=== PATIENT | female | born 1985 | race Asian ===

== ENCOUNTER 2018-02-26 17:22 | Emergency (ER) | payer OTHER ==
--- OUTSIDE RECORDS SUMMARY | 2018-02-26 17:31 | XMS REPORT | Continuity of Care Document ---
:1985 External Reference #:[id number] Author Name Katya Shaffer O.D. Address [address] [place] [address] Care Team Providers Name Role Phone Katya Shaffer O.D. Care Team Information Tank Processor Unavailable Payers Type Date Identification Numbers Payment Provider Subscriber Policy Number: [id number] [employer] Janie FELIX PayID: [id number] [address] [place] [address] Policy Number: [id number] [employer] Ppo/Pos/Epo/Nap Janie FELIX PayID: [id number] [address] [place] [address] Advance Directives Description No Information Available Problems Date Description Provider Status Onset: 01/26/2018 Chronic allergic conjunctivitis Raad Pressley M.D. Active Onset: 01/26/2018 Myopia Raad Pressley M.D. Active Onset: 01/26/2018 Vitreous degeneration Raad Pressley M.D. Active Family History Date Family Member(s) Problem(s) Comments Father Diabetes Father Heart Disease Mother No Current Problems Social History Type Date Description Comments Sex Unknown Marital Status Single Occupation Dietary Director Work Status Full-Time Employment ETOH Use Consumes 1 beer per week Tobacco Use Start: Unknown End: Unknown Patient is a former smoker Recreational Drug Use Denies Drug Use Smoking Status Reviewed: 02/18/18 Patient is a former smoker Allergies, Adverse Reactions, Alerts Description No Known Drug Allergies Medications Description No Active Medications Immunizations Description No Information Available Vital Signs Description No Information Available Results Description No Information Available Procedures Date Code Description Status 01/26/2018 07685 Determination Of Refractive State Completed 01/26/2018 14944 New Patient Comprehensive Exam Completed Encounters Description No Information Available Plan of Treatment 02/18/2018 - Katya Shaffer O.D.H52.13 Myopia, bilateralComments:Smoking can increase the risk of developing or worsening any eye related disease, as well as affect your overall health. If you are a smoker, we strongly recommend that you quit.If you are not a smoker, we strongly recommend that you do not start. You have Myopia, or near sightedness. I have given you a prescription for glasses and contactsFollow up:1 year
[2018-02-26 17:35] VITALS: BP 132/86
--- NOTE | 2018-02-26 17:47 | UC ---
Knee Pain HPI - HPI Summary HPI Summary: Fell on her knees yesterday from a segway scooter. both knees were scraped, L worse than R. used neosporin. able to walk/bare weight. - History of Current Complaint Chief Complaint: UCLowerExtremity Stated Complaint: KNEE INJURY Time Seen by Provider: 02/26/18 17:28 Hx Obtained From: Patient Hx Last Menstrual Period: one month ago Onset/Duration: Sudden Onset Severity Initially: Mild Severity Currently: Mild Location Of Injury: L KNEE Pain Intensity: 3 Character: Sharp Aggravating Factor(s): Movement Alleviating Factor(s): Rest Associated Signs And Symptoms: Positive: Negative Able to Bear Weight: Yes - Risk Factors Septic Arthritis Risk Factor: Negative Gout Risk Factor: Negative - Allergies/Home Medications Allergies/Adverse Reactions: Allergies Allergy/AdvReac Type Severity Reaction Status Date / Time No Known Allergies Allergy Verified 02/26/18 17:35 Home Medications: Home Medications NK [No Home Medications Reported] 02/26/18 [History Confirmed 02/26/18] PMH/Surg Hx/FS Hx/Imm Hx - Additional Past Medical History Additional PMH: HEALTHY - Surgical History Surgical History: None - Family History Known Family History: Positive: Other Family History: NON CONTRIBUTORY - Social History Alcohol Use: Occasionally Substance Use Type: None Smoking Status (MU): Never Smoked Tobacco Review of Systems Constitutional: Negative Skin: Bruising - L knee Respiratory: Negative Cardiovascular: Negative Musculoskeletal: Arthralgia, Other: - denies L knee swelling, limping, discharge from abrasion. Is Patient Immunocompromised?: No All Other Systems Reviewed And Are Negative: Yes Physical Exam Triage Information Reviewed: Yes Appearance: Well-Appearing Vital Signs: Initial Vital Signs Temp 99.3 F 02/26/18 17:32 Pulse 99 02/26/18 17:32 Resp 18 02/26/18 17:32 BP 132/86 02/26/18 17:32 Pulse Ox 98 02/26/18 17:32 Vital Signs Reviewed: Yes Musculoskeletal: Positive: Strength Intact, ROM Intact, Other: - +bruising at L knee, FROM L knee, no swelling noted at knee. Neurological: Positive: Other: - walking normally Skin: Positive: Other - approx 3 in. patch of abrasion. superificial Knee Pain Course/Dx - Course Course Of Treatment: superficial abrasion; L knee - Differential Dx/Diagnosis Differential Diagnosis/HQI/PQRI: Abrasion, Bursitis, Sprain, Strain Provider Diagnoses: abrasion, L knee Discharge - Sign-Out/Discharge Documenting (check all that apply): Patient Departure All imaging exams completed and their final reports reviewed: No Studies - Discharge Plan Condition: Good Disposition: HOME Patient Education Materials: Abrasion (ED) Referrals: Edin Salinas MD [Primary Care Provider] - Additional Instructions: keep area dry , clean. ok to use neosporin. may scar - Billing Disposition and Condition Condition: GOOD Disposition: Home
== END 2018-02-26 18:01 | disposition home or self-care (01) ==
LOC: UCEAST 17:22
DX: S80.212A Abrasion, left knee, initial encounter (principal); V87.8XXA Person injured in other specified noncollision transport accidents involving motor vehicle (traffic), initial encounter; Y92.9 Unspecified place or not applicable
CPT/HCPCS: 99201; G0463

== ENCOUNTER 2023-06-26 18:10 | Inpatient (IN) ==
[2023-06-26] MEDS ORDERED: Lidocaine 1% VIAL 10 MG/ML 30 ML VIAL INJ PRN (19:36)
[2023-06-26] MEDS: Dinoprostone 10 MG VAG.SUPP VAGINAL ONE (20:10)
[2023-06-26] MEDS: Promethazine INJ(RESTRICTED) 25 MG/ML 1 ml VIAL IV PRN (22:47)
[2023-06-26] MEDS: Morphine 10 MG/ML VIAL (1 ml) IV ONE (22:48)
[2023-06-26 23:01] LABS: ABS Basophils 0.1 10^3/uL (0.0-0.1); ABS Eosinophils 0.2 10^3/uL (0.0-0.5); ABS Lymphocytes 2.2 10^3/uL (1.0-4.8); ABS Neutrophils 6.4 10^3/uL (1.5-7.6); ABS Nucleated RBC 0.01 10^3/ul; Eosinophil % 1.6 %; Hematocrit 39.4 % (35-45); Hemoglobin 13.4 g/dL (11.5-14.3); Lymphocyte % 22.6 %; Mean Corpuscular Hemoglobin 32.6 pg (27-33); Mean Corpuscular Hgb Conc 34.1 g/dL (31-36); Mean Corpuscular Volume 95.4 fL (80-97); Nucleated Red Blood Cells % 0.1 %/100WBC (0.0-0.8); Red Blood Count 4.13 10^6/uL (3.63-4.92); Red Cell Distribution Width 13.7 % (12-17); White Blood Count 9.8 10^3/uL (3.8-11.8)
[2023-06-27 00:48] LABS: Giant Platelets Present; Mean Platelet Volume 10.9 fL (7.5-11.2); Platelet Count 162 10^3/uL (150-450)
[2023-06-27 01:22] LABS: Urine Benzodiazepine Screen None Detected (None Detect); Urine Opiates Screen None Detected (None Detect)
[2023-06-27] MEDS: Buffered Lidocaine 1% SYRIN 1 ml INTRADERM ONE (07:26)
[2023-06-27] MEDS: Lactated Ringers 1000 ml BAG 1,000 ML IV SCH (07:29)
[2023-06-27] MEDS: Terbutaline INJ 1 MG/ML 1 ml VIAL ONE (07:41)
[2023-06-27] MEDS: Sodium Citrate/Citric Acid LIQ 15 ML UDC ONE (07:46)
[2023-06-27] MEDS ORDERED: Bupivacaine-MPF SPINAL 7.5 MG/ML - 2ML AMP ONE (08:01)
[2023-06-27] MEDS: Methylergonovine 0.2 mg AMPULE 1 ml AMP ONE (08:11)
[2023-06-27] MEDS ORDERED: Acetaminophen IV 1 GM/100ML 1,000 MG/100 ML BAG IV ONE (08:12)
[2023-06-27] MEDS ORDERED: Dexamethasone IV 4 MG/ML VIAL 1 ml VIAL ONE (08:13)
[2023-06-27] MEDS ORDERED: Ondansetron 4 mg VIAL 2 MG/ML 2 ml VIAL ONE (08:14)
[2023-06-27] MEDS ORDERED: Morphine PF AMP (0.5MG/ML) 5 MG/10 ML AMP ONE (08:14)
[2023-06-27] MEDS ORDERED: Oxytocin 10 UNITS/ML 1 ML VIAL ONE ×2 (08:14→08:25)
[2023-06-27] MEDS ORDERED: HYDROmorphone 1 MG/1 ML SYRINGE IV PRN (08:16)
[2023-06-27] MEDS ORDERED: Naloxone 0.4 mg VIAL 0.4 mg/ml 1 ml VIAL IV PRN (08:16)
[2023-06-27] MEDS ORDERED: Metoclopramide 5 MG/ML VIAL (10 mg) IV PRN (08:17)
[2023-06-27] MEDS ORDERED: Naloxone 0.4 mg VIAL 0.4 mg/ml 1 ml VIAL IV PUSH PRN (08:17)
[2023-06-27] MEDS ORDERED: Ondansetron 4 mg VIAL 2 MG/ML 2 ml VIAL IV PRN (08:17)
[2023-06-27] MEDS ORDERED: Acetaminophen IV 1 GM/100ML 1,000 MG/100 ML BAG IV PRN (08:17)
[2023-06-27] MEDS ORDERED: Phenylephrine 40 mcg/mL 10mL (400mcg) SYRINGE ONE (08:20)
[2023-06-27] MEDS: ceFOXitin 2 GM IVPREMIX 2 GM/50 ML BAG ONE (08:49)
[2023-06-27] MEDS ORDERED: Dibucaine 1% OINT 28.35 GM TUBE PR PRN (08:53)
[2023-06-27] MEDS ORDERED: Witch Hazel PAD JAR TOPICAL PRN (08:53)
[2023-06-27] MEDS ORDERED: Glycerin ADULT 2.4 gm SUPP PR PRN (08:53)
[2023-06-27] MEDS ORDERED: Lactated Ringers 1000 ml BAG 1,000 ML IV SCH (09:00)
[2023-06-27] MEDS: Oxytocin in LR 20,000 MILLI.UNIT/1,000 ML BAG IV SCH (09:03)
[2023-06-27] MEDS: Oxytocin in LR 20,000 MILLI.UNIT/1,000 ML BAG IV ONE (09:04)
[2023-06-27 09:24] LABS: Urine Appearance Clear; Urine Bilirubin Negative (Negative); Urine Blood Negative (Negative); Urine Color Yellow; Urine Glucose Negative (Negative); Urine Ketones Negative (Negative); Urine Nitrite Negative (Negative); Urine Protein 1+ (>=30 mg/dL) (Negative); Urine Urobilinogen Negative (Negative); Urine pH 6.5 (5.0-8.0)
[2023-06-27 09:29] LABS: Urine Bacteria Absent /HPF (Absent); Urine Red Blood Cell 2+(6-10/hpf) /HPF (0-Trace); Urine Squamous Epithelial Cell Present /HPF (Absent); Urine White Blood Cell Trace(0-5/hpf) /HPF (0-Trace)
[2023-06-27] MEDS: Lactated Ringers 1000 ml BAG 1,000 ML IV ONE (09:35)
[2023-06-27] MEDS: Methylergonovine 0.2 mg AMPULE 1 ml AMP IM ONE (09:36)
[2023-06-28 06:43] LABS: ABS Basophils 0.1 10^3/uL (0.0-0.1); ABS Eosinophils 0.1 10^3/uL (0.0-0.5); ABS Lymphocytes 1.4 10^3/uL (1.0-4.8); ABS Monocytes 0.8 10^3/uL (0.0-0.9); ABS Neutrophils 10.7 10^3/uL (1.5-7.6); ABS Nucleated RBC 0.01 10^3/ul; Eosinophil % 0.6 %; Hematocrit 33.9 % (35-45); Hemoglobin 11.5 g/dL (11.5-14.3); Lymphocyte % 10.5 %; Mean Corpuscular Hemoglobin 32.5 pg (27-33); Mean Corpuscular Hgb Conc 33.9 g/dL (31-36); Mean Corpuscular Volume 95.8 fL (80-97); Mean Platelet Volume 10.3 fL (7.5-11.2); Nucleated Red Blood Cells % 0.1 %/100WBC (0.0-0.8); Platelet Count 118 10^3/uL (150-450); Red Blood Count 3.54 10^6/uL (3.63-4.92); Red Cell Distribution Width 13.6 % (12-17); White Blood Count 13.1 10^3/uL (3.8-11.8)
[2023-06-29 09:18] VITALS: BP 138/82
== END 2023-06-29 12:20 | disposition home or self-care (01) | DRG 788 ==
LOC: MCHOBOUT 18:10 → MCHOB 19:40
PROVIDERS: ADMIT Registered Nurse; ATTEND Obstetrics & Gynecology